=== PATIENT | male | born 1970 | race Caucasian/White ===

== ENCOUNTER → 2017-07-25 08:46 | Outpatient (CLI) | payer OTHER, SELFPAY ==
--- NOTE | 2017-07-25 08:48 | RAD_ITS ---
STUDY: X-RAY - LEFT KNEE REASON FOR EXAM: Male, 46 years old. 5 month history of posterior knee pain. TECHNIQUE: 4 view(s) of the knee. COMPARISON: None. FINDINGS: Normal visualized distal femur. Normal visualized proximal tibia and fibula. Normal proximal tibiofibular articulation. Normal medial femorotibial compartment. Normal lateral femorotibial compartment. Normal patellofemoral articulation. The soft tissue structures are unremarkable. RAD/Knee 4 or More Views IMPRESSION: Normal x-ray examination of the knee. Electronically Signed: Danilo Rincon MD at 11:25 EST Tel [phone], Service support ,
== END ==
PROVIDERS: Family Provider Family Medicine; PCP Family Medicine; Visit Provider Orthopaedic Surgery
DX: M25.562 Pain in left knee (principal)
CPT/HCPCS: 73564

== ENCOUNTER 2017-08-22 16:00 | Outpatient (RCR) | payer OTHER, SELFPAY ==
[2017-07-25 08:46] VITALS: BMI 30.4
--- NOTE | 2017-07-30 09:16 | HP.PTEVAL_ITS ---
Patient's Visit Information SAKINA BARBER is a 46 year old M referred to Physical Therapy by Sergio Jacobsen DO with a diagnosis of P. Date of Evaluation: 07/30/17 Physical Therapist: Danica Newberry - Visit Plan Frequency: 2x /Week Duration: 3 Weeks Plan: Focus on LE and core s/s- running analysis after strengthening for 3 weeks - Subjective Subjective: last few years started running a lot- December of last year he was running on the TM- he started having progression of pain in the right hamstring. Pain became so severe he had to stop running. Was able to do the elliptical 4-5x a week and then would try to run then he would limp for a few days. Went back and forth but never really was able to get back to running. The pain only stays for 2-3 days then goes away. Can live a normal life unless he tries to run. Did 3 miles yesterday but today is not really that bad. Worst : 5/10 Best: 0/10. Agg: running, up/down ladders, Eases: nothing just let it go and it gets better. Pain is along the posterior knee- sometimes radiates to the calf but no pain superior. Describes the pain as dull and achy but if he catches his foot its sharp. No N/T in the toes. Running shoes- 4 or 5 pairs that he alternates out- some have 100 miles on them some are older. Does buy shoes at [employer]- does not wear orthotics or inserts. Running about 30 miles a week- likes to be outside but was running on TM secondary to heat- did not play with incline. Work: sits most of the day. Elliptical 4 days a week very active outside of work. Dr. Jacobsen took x-rays which was normal and he said his knees looked good. Sleep: is disturbed- sleeps on his side and it wakes him up. PMHx: none Meds: allergy medication. - Objective Posture: FH, RS- can correct with verbal cues. Gait: slightly deviated- less stance on the left LE. Stairs: asc/desc 8 recip with decreased control with descent. HR/TR: able more pain with HR than TR. Squat: poor mechanics- weight shift and heel pop. Balance: 30 sec without LOB but increased muscle activation. palpation: not tender. ROM: 0-130 degrees pain with end range flexion. Strength: Ankle: 5/5, knee: flexion: 4-/5, extn: 5/5,Hip: 4/5 with pain abd Core: fair minus - Goals Goal 1:: Patient will be I with HEP and progression Goal Time Frame: 4-6 Weeks Goal 2:: Patient will ambulate >300 feet with a normalized gait pattern. Goal Time Frame: 4-6 Weeks Goal 3:: Patient will demo 0-130 degrees of ROM with 0/10 pain Goal Time Frame: 4-6 Weeks Goal 4:: Patient will run with 0/10 pain Goal Time Frame: 4-6 Weeks - Rehabilitation Potential Physical Therapy Diagnosis: Patient presents with hypomobility-he has decreased strength and muscular endurance leading to abnormal gait and increased pain with ADL's/recreational activities. Rehabilitation Potential: Excellent - Anticipated Interventions Patient/Client Instruction: Educate patient on: Benefits of Fitness Program For the Purpose of:: To improve ability to perform ADL's Therapeutic Exercise to Include: Strength training, Endurance training, Balance training, Agility training, Body mechanics, Postural training, Flexibilty training, Dynamic Lumbar Stabilization, Scapular Strength/Stabilization For the Purpose of:: To improve muscle performance and motor function Manual Therapy Techniques to Include: Mobilization, Functional dry needling, Soft tissue mobilization For the Purpose of:: To improve nutrient delivery to tissue, To increase oxygenation perfusion TENS: Yes Cryotherapy (ice pack, ice massage): Yes Thermo therapy (hot pack): Yes Ultrasound (thermal/non thermal): Yes For the Purpose of:: To decrease pain Thank you for the opportunity to evaluate your patient. For Medicare and Medicare HMO plans, please review the plan of care and approve it. It will need to be FAXED BACK to us at [phone] for Medicare purposes. Please let me know if there are questions or concerns regarding this plan of care. Physician Signature: Date:
--- NOTE | 2017-08-22 16:42 | HP.PTDCSUM_ITS ---
HP - PT D/C Summary It has been my pleasure to treat SAKINA BARBER under orders from Sergio Jacobsen DO , for the diagnosis of P for a total of 6 visit(s). Discharge Date: Please see the following information for a summary of their discharge status. - Subjective Subjective: Went to the gym on Sunday- ran for an hour and he is sore in general a tiny amount of pain in the calf area but none in the hamstring. - Overall Improvement % Improvement: 90 - Objective Objective/Function: Posture: good. Gait: no deviation with walking or running. ROM: WNL. Stairs: good control. Strength: 5/5 Core: fair plus - Goals Goal 1:: Patient will be I with HEP and progression Goal Progress: Goal Met Goal 2:: Patient will ambulate >300 feet with a normalized gait pattern. Goal Progress: Goal Met Goal 3:: Patient will demo 0-130 degrees of ROM with 0/10 pain Goal Progress: Goal Met Goal 4:: Patient will run with 0/10 pain Goal Progress: Goal Met - Plan Plan: Discharge to HEP - D/C Information If there are questions or concerns regarding this patient's physical therapy, please feel free to call me at [phone]. Thank you for the referral of this patient. Sincerely, Danica Newberry
== END 2017-08-22 19:00 | disposition home or self-care (01) ==
LOC: PT 16:00
PROVIDERS: Family Provider Family Medicine; PCP Family Medicine; Visit Provider Orthopaedic Surgery
DX: S76.312D Strain of muscle, fascia and tendon of the posterior muscle group at thigh level, left thigh, subsequent encounter (principal)
CPT/HCPCS: 97110; 97140; 97161; 97530

== ENCOUNTER 2020-03-06 17:00 | Emergency (ER) | payer OTHER, SELFPAY ==
[2017-07-25 08:46] VITALS: BMI 30.4
[2020-03-06 17:01] VITALS: BP 148/105; PULSE 93; RESP 16; TEMP 36.3; O2SAT 97; BMI 37.2
--- NOTE | 2020-03-06 17:25 | ED.VIS.UPPEX ---
History of Present Illness Chief Complaint: Bite Informant: Patient Occurred: Today Mechanism/Context: Injury Context: Sudden Onset Timing: Continuous Quality of Pain: - - sore Location: left hand Current Severity: Mild Maximum Severity: Mild Worsened by: nothing Relieved by: nothing Associated Symptoms: Negative for: Parasthesia, Weakness, Loss of Funtion Narrative: Patient was on his roof, he took a single off and suddenly a bat came out of it, dropped onto his hand before suddenly flying away. This resulted in a small break in the skin on the dorsum of his left hand. He does not know if it was a claw, a tooth, etc. In researching the possibility of rabies, he became concerned and presents for evaluation. He is healthy otherwise and not immunocompromised. Tetanus Immunization: >10 years Past Medical History - Allergies and Home Meds Allergies/Adverse Reactions: Allergies No Known Allergies Allergy (Verified 03/06/20 17:01) Primary Care Physician: FARHEEN Siu MD [ER STAFF PHYSICIAN] - (on days 3, 7, 14 for repeat Rabies vaccinations) Adithya Salazar MD [Primary Care Provider] - Lives: Spouse/ Significant Other Smoking Status: Never smoker Review of Systems General: Denies: Chills, Fever, Sweats Musculoskeletal: Denies: Swelling, Extremity Pain Skin: Reports: Wounds. Denies: Rash Neurological: Denies: Headache, Weakness, Numbness Physical Exam Vital Signs/Narrative: Vital Signs Temp Pulse Resp BP Pulse Ox 03/06/20 17:01 97.3 F L 93 16 148/105 H 97 General: Well nourished, Well developed, - - Well-appearing NAD Head: Normocephalic, Atraumatic ENT: No Trauma, Moist Mucous Membranes Extremeties: Full range of motion throughout all 4 extremities including all joints of the left hand Skin: Normal color, No rash, Trauma - Abrasion/laceration with small break in the skin over the dorsum of the left hand near the fifth MCPJ. No bleeding, no repair indicated, 0.5 cm in length small partial-thickness laceration, essentially., - - No sign of infection or lymphangitis. Neurological: Alert, Oriented x3, Cranial nerves II-XII grossly intact, Normal Strength, Normal Sensation, Normal Gait Psychological: Normal affect, Normal Mood Diagnostic/Tx/Re-eval - Medical Decision Making Patient is amenable to rabies prophylaxis. Given the vaccine, and rabies immunoglobulin 20 units/kg, 2cc of the total 7.3cc was injected by myself subcutaneously around the wound after isopropanol prep, the rest of it was given intramuscularly in the left shoulder and other areas until the total dose was met. Also updated his tetanus. Given appropriate discharge instructions for the other 3 rabies vaccine injections. ED Disposition - Plan for ED Patient: Disposition: Home or Assisted Living Diagnosis: Laceration of left hand, Exposure to bat without known bite Instructions: Rabies Virus Strain PM-1503-3M antigen (Propiolactone Inactivated)..., Rabies Immune Globulin (Human) Solution for injection, ED Laceration Small or Superficial Not Stitched Referrals: Adithya Salazar MD [Primary Care Provider] - Doctor,MD FARHEEN [ER STAFF PHYSICIAN] - (on days 3, 7, 14 for repeat Rabies vaccinations)
[2020-03-06] MEDS: Rabies Immune Globulin/PF 300 UNIT/ML, 5 ML VIAL 2200 UNIT IM (18:16)
[2020-03-06] MEDS: Rabies Vaccine,Human Diploid 2.5 UNITS Vial IM (18:26)
[2020-03-06] MEDS: Diphth,Pertuss(Acell),Tet Vac 0.5 ML Vial IM (18:27)
[2020-03-06 18:59] VITALS: PULSE 87; RESP 17; O2SAT 97
== END 2020-03-06 19:00 | disposition home or self-care (01) ==
LOC: ED 17:31
PROVIDERS: Emergency Provider Emergency Medicine; PCP Family Medicine
DX: S61.412A Laceration without foreign body of left hand, initial encounter (principal); X58.XXXA Exposure to other specified factors, initial encounter; Z20.3 Contact with and (suspected) exposure to rabies
CPT/HCPCS: 90375; 90471; 90675; 90715; 96372; 99283

== ENCOUNTER 2020-03-09 18:21 | Outpatient (CLI) | payer OTHER, SELFPAY ==
[2020-03-09] MEDS: Rabies Vaccine,Human Diploid 2.5 UNITS Vial IM (18:40)
[2020-03-09 18:44] VITALS: BP 150/89; PULSE 81; RESP 15; TEMP 36.2; O2SAT 97; BMI 36.1
[2020-03-09 18:59] VITALS: RESP 18
== END 2020-03-09 19:00 | disposition home or self-care (01) ==
LOC: ED 19:02
PROVIDERS: PCP Family Medicine
DX: Z23 Encounter for immunization (principal)
CPT/HCPCS: 90675; 96372; 96374; 96375

== ENCOUNTER 2020-03-13 08:26 | Outpatient (CLI) | payer OTHER, SELFPAY ==
[2020-03-13 08:27] VITALS: BP 134/62; PULSE 65; RESP 15; TEMP 36; O2SAT 99; BMI 37.2
[2020-03-13] MEDS: Rabies Vaccine,Human Diploid 2.5 UNITS Vial IM (09:28)
== END 2020-03-13 09:37 | disposition home or self-care (01) ==
LOC: ED 21:11
PROVIDERS: PCP Family Medicine
DX: Z23 Encounter for immunization (principal)
CPT/HCPCS: 90675; 96372

== ENCOUNTER 2020-03-20 08:47 | Outpatient (CLI) | payer OTHER, SELFPAY ==
[2020-03-20 08:48] VITALS: BP 147/89; PULSE 63; RESP 17; TEMP 36.9; O2SAT 99; BMI 32.6
[2020-03-20] MEDS: Rabies Vaccine,Human Diploid 2.5 UNITS Vial IM (09:03)
== END 2020-03-20 09:11 | disposition home or self-care (01) ==
LOC: ED 09:35
PROVIDERS: PCP Family Medicine
DX: Z23 Encounter for immunization (principal)
CPT/HCPCS: 90675; 96372

== ENCOUNTER → 2021-02-11 09:44 | Outpatient (CLI) | payer OTHER, SELFPAY ==
[2021-02-11 12:41] LABS: Anion Gap 9 (5-15); BUN 17 mg/dL (7-18); BUN/Creat Ratio 16.5 RATIO (10-20); Calcium,Total 9.3 mg/dL (8.5-10.1); Chloride 102 mmol/L (98-107); Cholesterol 210 mg/dL (200); Creatinine, Serum 1.03 mg/dL (0.70-1.30); EST Glomerular Filtration Rate 81 mL/min (>60); Est Glom Filt Rate - Afr Amer 98 mL/min (>60); Glucose 298 mg/dL (74-106); High Density Lipoprotein 34 mg/dL; Potassium 4.1 mmol/L (3.5-5.1); Sodium Level 134 mmol/L (136-145); Triglycerides 245 mg/dL; Very Low Density Lipoprotein 49 mg/dL (5-40)
== END ==
PROVIDERS: PCP Family Medicine; Visit Provider Family Medicine
DX: E11.9 Type 2 diabetes mellitus without complications (principal)
CPT/HCPCS: 36415; 80048; 80061; 82043; 82570

== ENCOUNTER 2021-08-24 08:13 | Outpatient (CLI) | payer OTHER, SELFPAY ==
[2021-08-24 10:29] LABS: Anion Gap 9 (5-15); BUN 21 mg/dL (7-18); BUN/Creat Ratio 17.1 RATIO (10-20); Calcium,Total 9.3 mg/dL (8.5-10.1); Chloride 100 mmol/L (98-107); Cholesterol 160 mg/dL (200); Creatinine, Serum 1.23 mg/dL (0.70-1.30); EST Glomerular Filtration Rate 66 mL/min (>60); Est Glom Filt Rate - Afr Amer 80 mL/min (>60); Glucose 155 mg/dL (74-106); High Density Lipoprotein 41 mg/dL; Potassium 4.5 mmol/L (3.5-5.1); Sodium Level 135 mmol/L (136-145); Triglycerides 112 mg/dL; Very Low Density Lipoprotein 22 mg/dL (5-40)
== END 2021-08-24 23:59 | disposition home or self-care (01) ==
LOC: MFPLAB 08:16
PROVIDERS: PCP Family Medicine; Referring Provider Family Medicine; Visit Provider Family Medicine
DX: E11.9 Type 2 diabetes mellitus without complications (principal)
CPT/HCPCS: 36415; 80048; 80061

== ENCOUNTER 2021-09-14 08:47 | Outpatient (CLI) | payer OTHER, SELFPAY ==
--- NOTE | 2021-09-14 08:15 | LIP_PTH ---
PATIENT: SAKINA BARBER LOC: [facility] U#:[id number] AGE/SX: 50/M ROOM: RE09/14/[address]: Dr. Adithya Salazar MD : 1970 BED: DIS: 09/14/2021 SPEC #: [id number] RECD: 09/14/21 08:43 STATUS: DARWIN CHARLIE #: [id number] LAKESHIA: 09/14/21 08:[address]: Celso Richardson DEPT: SURGICAL PATHOLOGY RECD BY: Milton Arshad ENTERED: 09/14/21 12:20 SP TYPE: LIPOMA OTHR DR: Dr. Adithya Salazar MD Tissues: Soft tissues, NOS Procedures: Surgery Specimen Level III HEADER OPERATION: Excision of right shoulder lipoma PRE-OP DIAGNOSIS: Lipoma right shoulder TISSUE SUBMITTED: Right shoulder lipoma MICROSCOPIC DIAGNOSIS Right shoulder lipoma, excision: Mature adipose tissue consistent with lipoma. SJ:melanie 09/15/2021 MICROSCOPIC DESCRIPTION Slides are reviewed. GROSS DESCRIPTION Received in fixative is one container labeled with the patient's name and designated lipoma right shoulder. The specimen consists of three variable sized pieces of adipose tissue that in aggregate measure 3 x 2.5 x 1 cm. Sections reveal yellow adipose cut surfaces without area of hemorrhage, necrosis or cystic degeneration. Clinical Outcomes Manager sections are submitted in one cassette. / SJ:rg 09/14/2021 TC:1 CPT: 07146
== END 2021-09-14 23:59 | disposition home or self-care (01) ==
LOC: LABSPEC 08:49
PROVIDERS: PCP Family Medicine; Visit Provider Family Medicine
DX: D17.21 Benign lipomatous neoplasm of skin and subcutaneous tissue of right arm (principal)
CPT/HCPCS: 88304

== ENCOUNTER → 2022-02-23 | Outpatient (CLI) | payer OTHER, SELFPAY ==
[2022-02-23 10:22] LABS: Anion Gap 9 (5-15); BUN 18 mg/dL (7-18); BUN/Creat Ratio 15.3 RATIO (10-20); Calcium,Total 9.5 mg/dL (8.5-10.1); Chloride 102 mmol/L (98-107); Cholesterol 123 mg/dL (200); Creatinine, Serum 1.18 mg/dL (0.70-1.30); EST Glomerular Filtration Rate 69 mL/min (>60); Est Glom Filt Rate - Afr Amer 84 mL/min (>60); Glucose 191 mg/dL (74-106); High Density Lipoprotein 34 mg/dL; Potassium 4.3 mmol/L (3.5-5.1); Sodium Level 134 mmol/L (136-145); Triglycerides 159 mg/dL; Very Low Density Lipoprotein 32 mg/dL (5-40)
== END | disposition home or self-care (01) ==
LOC: MFPLAB 08:29
PROVIDERS: PCP Family Medicine; Referring Provider Family Medicine; Visit Provider Family Medicine
DX: E11.9 Type 2 diabetes mellitus without complications (principal)
CPT/HCPCS: 36415; 80048; 80061

== ENCOUNTER → 2022-11-29 | Outpatient (CLI) | payer OTHER, SELFPAY ==
[2022-11-29 11:22] LABS: Anion Gap 7 (5-15); BUN 22 mg/dL (7-18); BUN/Creat Ratio 20.4 RATIO (10-20); Chloride 105 mmol/L (98-107); Cholesterol 102 mg/dL (200); Creatinine, Serum 1.08 mg/dL (0.70-1.30); EST Glomerular Filtration Rate 76 mL/min (>60); Est Glom Filt Rate - Afr Amer 92 mL/min (>60); Glucose 122 mg/dL (74-106); High Density Lipoprotein 40 mg/dL; Potassium 4.5 mmol/L (3.5-5.1); Sodium Level 136 mmol/L (136-145); Triglycerides 105 mg/dL; Very Low Density Lipoprotein 21 mg/dL (5-40)
== END | disposition home or self-care (01) ==
LOC: MFPLAB 08:44
PROVIDERS: PCP Family Medicine; Visit Provider Family Medicine
DX: E11.9 Type 2 diabetes mellitus without complications (principal)
CPT/HCPCS: 36415; 80048; 80061

== ENCOUNTER → 2023-12-13 | Outpatient (CLI) | payer BC, SELFPAY ==
[2023-12-13 10:35] LABS: Anion Gap 8 (5-15); BUN 21 mg/dL (7-18); BUN/Creat Ratio 19.4 RATIO (10-20); Calcium,Total 9.3 mg/dL (8.5-10.1); Chloride 105 mmol/L (98-107); Cholesterol 122 mg/dL (200); Creatinine, Serum 1.08 mg/dL (0.70-1.30); EST Glomerular Filtration Rate 76 mL/min (>60); Est Glom Filt Rate - Afr Amer 92 mL/min (>60); Glucose 127 mg/dL (74-106); High Density Lipoprotein 35 mg/dL; Potassium 4.2 mmol/L (3.5-5.1); Sodium Level 136 mmol/L (136-145); Triglycerides 120 mg/dL; Very Low Density Lipoprotein 24 mg/dL (5-40)
== END | disposition home or self-care (01) ==
LOC: MFPLAB 08:43
PROVIDERS: PCP Family Medicine; Visit Provider Family Medicine
DX: E11.9 Type 2 diabetes mellitus without complications (principal)
CPT/HCPCS: 36415; 80048; 80061

== ENCOUNTER → 2024-09-18 | Outpatient (CLI) | payer BC, SELFPAY ==
[2024-09-18 11:44] LABS: ALB/GLOB Ratio 1.3 RATIO (0.9-2.4); AST(SGOT) 21 U/L (<=37); Alanine Aminotransfer ALT/SGPT 26 U/L (<=46); Albumin, Serum 4.2 g/dL (3.5-5.0); Alkaline Phosphatase 22 U/L (40-129); Anion Gap 13 (5-15); BUN 22 mg/dL (4-19); Calcium,Total 9.6 mg/dL (7.6-11.0); Carbon Dioxide 20.7 mmol/L (21.0-32.0); Chloride 103 mmol/L (98-108); Cholesterol 147 mg/dL (<=200); Creatinine, Serum 1.01 mg/dL (0.70-1.20); EST Glomerular Filtration Rate 89 (>60); Globulin 3.3 g/dL (2.2-4.2); Glucose 158 mg/dL (70-99); High Density Lipoprotein 40 mg/dL; Low Density Lipoprotein Calc. 88 mg/dL; Potassium 4.5 mmol/L (3.3-5.1); Protein, Total 7.5 g/dL (5.9-8.4); Sodium Level 136 mmol/L (133-145); Total Bilirubin 0.25 mg/dL (0.00-1.30); Triglycerides 98 mg/dL; Very Low Density Lipoprotein 20 mg/dL (5-40); cholesterol:hdl ratio screen 3.71
[2024-09-18 15:08] LABS: Microalbumin,Random Urine < 12.0 mg/L (NO RANGE EST.); Microalbumin:Creatinine Ratio UNABLE TO CALCULATE mg/g CRE
== END | disposition home or self-care (01) ==
LOC: MFPLAB 08:33
PROVIDERS: PCP Family Medicine; Referring Provider Family Medicine; Visit Provider Family Medicine
DX: E11.9 Type 2 diabetes mellitus without complications (principal)
CPT/HCPCS: 36415; 80053; 80061; 82043; 82570

== ENCOUNTER → 2025-03-25 | Outpatient (CLI) | payer BC, SELFPAY ==
[2025-03-25 10:27] LABS: AST(SGOT) 21 U/L (<=37); Alanine Aminotransfer ALT/SGPT 29 U/L (<=46); Albumin, Serum 4.2 g/dL (3.5-5.0); Alkaline Phosphatase 24 U/L (40-129); Anion Gap 12 (5-15); BUN 20 mg/dL (4-19); BUN/Creat Ratio 19.2 RATIO (10-20); Calcium,Total 9.7 mg/dL (7.6-11.0); Carbon Dioxide 21.8 mmol/L (21.0-32.0); Chloride 102 mmol/L (98-108); Cholesterol 198 mg/dL (<=200); Globulin 3.1 g/dL (2.2-4.2); Glucose 149 mg/dL (70-99); Low Density Lipoprotein Calc. 125 mg/dL; Potassium 4.6 mmol/L (3.3-5.1); Triglycerides 168 mg/dL; Very Low Density Lipoprotein 34 mg/dL (5-40); cholesterol:hdl ratio screen 5.03
== END | disposition home or self-care (01) ==
LOC: MFPLAB 08:34
PROVIDERS: PCP Family Medicine; Visit Provider Family Medicine
DX: I10 Essential (primary) hypertension (principal)
CPT/HCPCS: 36415; 80053; 80061